=== PATIENT | male | born 1950 | race Two or more races ===

== ENCOUNTER 2024-06-19 13:44 | Emergency (ER) | payer BC, OTHER ==
[~2024-06-19] VITALS: Ht 182.9 cm; Wt 72.7 kg
[2024-06-19 17:54] VITALS: BP 153/87; PULSE 70; RESP 16; O2SAT 97
== END 2024-06-19 21:11 | disposition left against medical advice (07) ==
LOC: ER 13:44
DX: R10.9 Unspecified abdominal pain (principal); Z48.00 Encounter for change or removal of nonsurgical wound dressing; Z85.46 Personal history of malignant neoplasm of prostate; Z87.442 Personal history of urinary calculi; Z98.890 Other specified postprocedural states